=== PATIENT | male | born 1950 | race Two or more races ===

== ENCOUNTER 2019-02-11 10:22 | Emergency (ER) | payer OTHER ==
[~2019-02-11] VITALS: Ht 175.3 cm; Wt 61.0 kg
[2019-02-11 10:57] VITALS: BP 105/53
[2019-02-11 11:55] LABS: CHLORIDE 109 mEq/L (98-107)
[2019-02-11 11:59] LABS: HEMATOCRIT. 33.8 % (42.0-52.0); HEMOGLOBIN. 11.5 g/dL (14.0-18.0); MEAN CORPUSCULAR HEMOGLOBIN 31.6 pg (28.0-32.0); MEAN CORPUSCULAR VOLUME 92.6 fL (80.0-94.0); RED BLOOD CELL COUNT 3.65 mill/uL (4.7-6.1); RED CELL DISTRIBUTION WIDTH 16.5 % (11.6-14.6)
[2019-02-11 12:23] LABS: PLATELET ESTIMATE NORMAL
[2019-02-11 12:25] LABS: PLATELET 154 x1000/uL (130-400)
[2019-02-11] MEDS ORDERED: NITROGLYCERIN 0.4MG TABLET SL SL ONE (13:15)
== END 2019-02-11 15:30 | disposition short-term general hospital (02) ==
LOC: ER 10:22 → CANBEDREQ 02-12 10:16
DX: I20.0 Unstable angina (principal); I25.2 Old myocardial infarction; R07.89 Other chest pain; I10 Essential (primary) hypertension; Z98.890 Other specified postprocedural states
CPT/HCPCS: 36415; 71045; 83880; 84484; 93005; 99285